=== PATIENT | male | born 1975 | race Caucasian/White ===

== ENCOUNTER → 2017-12-31 | Outpatient (CLI) | payer OTHER ==
--- NOTE | 2017-12-31 11:02 | DIAGNOSTIC IMAGING REPORT ---
FOOT MIN 3 VIEWS ROUTINE CLINICAL HISTORY: Swollen left foot COMPARISON: None. DISCUSSION: No fractures or dislocations are visualized. There are no erosive or destructive changes. There are minor degenerative changes at the level of the first metatarsal phalangeal joint. There is mild overlying soft tissue swelling. IMPRESSION: 1. Mild degenerative changes at the level of the first metatarsal phalangeal joint with overlying soft tissue swelling 2. No fractures subluxations or destructive lesions are visualized. Electronically signed by: Nathan Finley M.D. 12/31/2017 11:01 AM Dictated Date/Time: 12/31/2017 10:59 AM
== END | disposition home or self-care (01) ==
LOC: C.RAD1850 10:45
PROVIDERS: ATTEND Student in an Organized Health Care Education/Training Program
DX: M19.072 Primary osteoarthritis, left ankle and foot (principal); M10.9 Gout, unspecified